=== PATIENT | male | born 1970 | race Caucasian/White ===

== ENCOUNTER 2025-04-21 08:36 | Observation (INO) | payer OTHER, SELFPAY ==
[2025-04-21] VITALS (8 sets, daily range): BP systolic 133–166; BP diastolic 77–89; PULSE 67–100; RESP 16–20; TEMP 36.3–36.7; O2SAT 95–98
--- NOTE | 2025-04-21 08:57 | DI.CT_ITS ---
Exam(s) CT ABDOMEN PELVIS W EXAM: CT ABDOMEN PELVIS W CLINICAL HISTORY: bloating, difficulty passing stool/gas, lower pain TECHNIQUE: Imaging Protocol: Axial computed tomography images with coronal and sagittal reformatted images were created and reviewed. CONTRAST MATERIAL: Intravenous: Omnipaque 350 Contrast volume:75 mL Oral: No COMPARISON: No exams were available for comparison FINDINGS: ABDOMEN: Lung Bases: There is atelectasis seen in the right lung base. Liver: Normal density. There is a cyst in the right lobe of the liver. No suspicious hepatic masses are present. Portal, Superior Mesenteric, and Splenic Veins: Unremarkable. Gallbladder and Biliary Tract: No radiodense calculus or dilation. Pancreas: Normal density, no abnormal calcifications or inflammatory process. Spleen: Normal. Adrenals: No masses seen. Kidneys: Normal size, contour and axis. No radiodense stones or obstructive uropathy. No masses seen. Abdominal Aorta: Abdominal portion non-dilated. Atherosclerotic calcification is present. Bowel: There is diverticulosis of the colon. There is bowel wall thickening seen in the mid sigmoid colon with pericolonic inflammation. There is extra luminal air seen around the inflamed colon consistent with perforation. There is no evidence of bowel obstruction. Appendix is unremarkable. Peritoneal Cavity: No ascites, collection or mesenteric inflammatory response. No evidence of an abdominal or pelvic abscess. Lymph Nodes: Within normal limits. Bones: Within normal limits for the patient's age. Soft Tissues: Unremarkable. PELVIS: Bladder: There is diffuse thickening of the wall of the urinary bladder. The bladder is underdistended. However, this may be secondary to the adjacent sigmoid colon inflammation. Cystitis should be considered. Reproductive Organs: Unremarkable as visualized. Lymph Nodes: Within normal limits. Bones: Within normal limits for the patient's age. IMPRESSION: 1. Sigmoid diverticulitis with adjacent free air consistent with perforation. There is no abscess. 2. Diffuse thickening of the wall of the urinary bladder. While this may be due to underdistention this may reflect inflammation/infection secondary to the adjacent inflamed sigmoid colon. 3. Findings were discussed with Noemi Conrad at 10:45 a.m. on 04/21/2025. RADIATION DOSE DELIVERED: 650.57mGy.cm Total DLP DATA REPOSITORY: All CT scans at this facility are submitted to the National Radiology Data Registry (NRDR) Dose Index Registry (DIR) with the [employer] ([employer]). RADIATION OPTIMIZATION: All CT scans at this facility use at least one of these dose optimization techniques: automated exposure control; mA and/or kV adjustment per patient size (includes targeted exams where dose is matched to clinical indication); or iterative reconstruction.
--- NOTE | 2025-04-21 08:57 | W.ED.GENAD ---
Discharge Plan Disposition Patient Disposition: Admit to [facility] Condition: Good Discharge Details Clinical Impression: Diverticulitis Admit Date/Time: 04/21/25 10:51 Admit Provider: Mohamud Anderson Attending Provider: Mohamud Anderson Primary Care Provider: None,None ED Provider: Noemi Conrad General Date/Time Provider Initiated Documentation: 04/21/25 08:37. Limitations to Documentation: no limitations. Information obtained by: patient and RN notes reviewed. History of Present Illness 54 year old M presents to the emergency department with the chief complaint of abdominal bloating, lower abdominal discomfort, described as moderate, Quality is described as aching and other (bloating), and is localized to the abdomen. Patient reports no radiation. Patient started experiencing this day(s) (3) and it has been constant. No relieving factors improve symptom(s), Eating worsens symptoms . Patient notes no other symptoms.. Patient did receive the following treatments prior to arrival, none Related Data Home Medications ?Medication ?Instructions ?Recorded ?Confirmed lisinopril 5 mg tablet 5 mg PO DAILY 04/21/25 04/21/25 Allergies Allergy/AdvReac Type Severity Reaction Status Date / Time No Known Allergies Allergy Unverified 04/21/25 08:43 General Stated Complaint: Abd Prob JACKIE: 3 Review of Systems Constitutional Constitutional: Reports as per HPI, Denies chills, Denies fever(s) and Denies headache(s) ENT Ears, Nose, Mouth, and Throat: Denies headache(s) Cardiovascular Cardiovascular: Reports as per HPI, Denies chest pain and Denies dyspnea Respiratory Respiratory: Reports as per HPI, Denies cough and Denies dyspnea Gastrointestinal Gastrointestinal: Reports as per HPI Genitourinary Genitourinary: Denies system reviewed and no additional complaints, except as documented (patient denies any change in urinary habits) Musculoskeletal Musculoskeletal: Reports as per HPI and Denies back pain Integumentary/Breasts Skin/Breast: Reports as per HPI and Denies rash Neurologic Neurologic: Reports as per HPI and Denies headache(s) Exam Const General: cooperative, healthy appearing, comfortable, no acute distress and well developed Nutritional Appearance: average body habitus and well nourished Orientation: alert and awake HENMT Head: normal to inspection Mouth: moist mucous membranes Resp Effort & Inspection: normal respiratory effort, able to speak in complete sentences and no respiratory distress Auscultation: clear to auscultation bilaterally, no rales, no rhonchi and no wheezes Cardio Rate: regular rate Rhythm: regular rhythm Heart Sounds: S1 normal and S2 normal GI Inspection: normal to inspection Palpation: soft, no hepatosplenomegaly, not firm, no guarding, no masses, no pulsatile masses, not rigid, tender in the LLQ, in the RLQ and at McBurney's point; with no rebound tenderness and No ascites Percussion: normal to percussion Auscultation: normal bowel sounds Back/Spine/Pelvis Back: no CVA tenderness Skin General skin exam: no rashes or lesions noted Trauma: no lacerations or abrasions Neuro General: patient alert and patient awake Cognition: normal cognition Speech: speech normal Gait: normal gait Course Vital Signs Vital signs: Vital Signs Temperature 36.3 C L 04/21/25 08:39 Pulse 100 H 04/21/25 08:39 Respiratory Rate 18 04/21/25 08:39 Blood Pressure 166/89 H 04/21/25 08:39 Pulse Oximetry 98 04/21/25 08:39 Temperature 36.3 C L 04/21/25 08:39 Temperature Source Tympanic 04/21/25 08:39 Pulse 100 H 04/21/25 08:39 Respiratory Rate 18 04/21/25 08:39 Blood Pressure 166/89 H 04/21/25 08:39 Blood Pressure Position Sitting 04/21/25 08:39 Pulse Oximetry 98 04/21/25 08:39 Oxygen Delivery Method Room Air 04/21/25 08:39 Oxygen Flow Rate 0 04/21/25 08:39 Pain Level 7 04/21/25 08:39 Medical Decision Making Patient is a pleasant 54-year-old gentleman 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 He reports that the symptoms began about 3 days ago. He has had episodes like this historically but states that the typically are able to pass. He has tried Gas-X without any relief. States that when he tries to drink a normal amount of fluids or eat any food he will vomit these up and is not able to keep anything down for 3 days aside from very small amounts of water. No change in urinary habits. States that he did have 1 very small liquid stool but otherwise no bowel movements for 3 days and does report a change in flatus as well. No previous abdominal surgeries. He did have a colonoscopy 3 years ago which she reports was normal. Denies any fevers or chills. No pain into his back. Denies any chest pain or shortness of breath. On exam, patient appears nontoxic. He is resting comfortably no acute distress. Lungs are clear, normal cardiac exam. No peritoneal findings on exam. Patient is slightly bloated and does have some mild discomfort bilaterally in the lower abdomen but no focal area of tenderness. Does have some mild discomfort over McBurney's point. Negative Vital's. No guarding or rebound tenderness. Will obtain baseline labs and CT. Concern for potential obstruction but, based on patient's history, unclear what would have caused this. He reports that he drinks 3 alcoholic beverages per day, no ascites was appreciated. He is not using any narcotics to slow down GI transit. Also considered other inflammatory issues such diverticulitis and appendicitis given the location of his discomfort. No personal familial history of Crohn's or other GI chronic disease. CT reviewed by radiologist, concerning for diverticulitis with free air noted. Will begin IV antibiotics and consult with general surgery. Patient started on Zosyn. Consulted with Dr. Anderson, general surgeon, who agrees to admit the patient for continued monitoring of his diverticulitis with perforation. Patient will remain n.p.o.. PFSH All Active Problems (Updated 04/21/25 @ 15:11 by ERUM Odom) Diverticulitis (Chronic) Social History Smoking/Tobacco Use Status: Never Smoking risk assessment performed?: Yes Alcohol Intake: never Drug use: Never Substance use type: does not use Housing: house Do you feel safe at home: Yes Do you feel safe in your relationship?: Yes
[2025-04-21 09:14] LABS: Abs Immature Grans 0.05 10^3/uL (0.0-0.06); Absolute Eosinophil Count 0.01 10^3/uL (0.0-0.7); Absolute Lymphocyte Count 0.66 10^3/uL (1.2-3.4); Absolute Monocyte Count 1.27 10^3/uL (0.1-0.8); Basophils % 0.3 %; Eosinophils % 0.1 %; HCT 43.7 % (40.0-50.0); HGB 15.4 g/dL (13.5-17.5); Immature Grans % 0.3 %; Lymphocytes % 4.5 %; MCH 31.8 pg (27.0-33.0); MCHC 35.2 % (32.0-36.0); MCV 90 fL (80-95); MPV 9.1 fL (8.0-11.0); Monocytes % 8.7 %; Neutrophils % 86.1 %; Platelet Count 249 10^3/uL (130-400); RBC 4.85 10^6/uL (4.36-5.78); RDW 11.9 % (11.8-14.1); RDW-SD 39.2 fL; WBC 14.63 10^3/uL (4.4-10.8)
[2025-04-21 09:15] LABS: Absolute Basophil Count 0.04 10^3/uL (0.0-0.2)
[2025-04-21] MEDS: Normal Saline 1,000 ML 1000 ML IV (09:29)
[2025-04-21 09:33] LABS: ALT 27 U/L (16-63); AST 16 U/L (15-37); Albumin 3.5 g/dL (3.4-5.0); Alkaline Phosphatase 91 U/L (46-116); Anion Gap 16.2 mmol/L (3-11); BUN 13 mg/dL (7-18); Bilirubin, Total 1.3 mg/dL (0.2-1.0); CO2 21.8 mmol/L (21.0-32.0); Calcium 9.5 mg/dL (8.5-10.1); Chloride 97 mmol/L (98-107); Estimated GFR 88.88 (mL/min/1.73m2); Glucose 104 mg/dL (74-106); Lipase 32 U/L (<78); Potassium 3.8 mmol/L (3.5-5.1); Sodium 135 mmol/L (136-145); Total Protein 8.1 g/dL (6.4-8.2)
[2025-04-21] MEDS: Normal Saline - Diluent 50 ML VIAL IJ (10:10)
[2025-04-21] MEDS: Omnipaque 350 MG/ML 500 ML BTL-Imaging package IJ (10:11)
[2025-04-21 10:19] LABS: Bilirubin Negative (Negative); Blood Small (Negative); Clarity Clear (Clear); Glucose Negative (Negative); Ketones 40 mg/dL (Negative); Leukocyte Esterase Negative (Negative); Nitrite Negative (Negative); Specific Gravity <= 1.005 (1.005-1.025); Urobilinogen 0.2 mg/dL (Up to 0.2); pH 5.5 (5-8)
[2025-04-21 10:26] LABS: Bacteria Negative HPF (Negative); C & S Indicated? No; Casts Negative LPF (Negative); Crystals Negative HPF (Negative); Epithelial Cells Rare HPF (Negative); Mucus Trace (Negative); RBC 0-2 HPF (0-2); WBC Negative HPF (0-5)
--- NOTE | 2025-04-21 10:56 | W.PM.HP.N ---
Date of service: 04/21/25 Time of Service: 10:56 Assessment and Plan Assessment and plan (1) Diverticulitis: Status: Chronic Assessment and plan: Michael has perforated diverticulitis, that appears to be well-contained within the sigmoid mesentery. There is a small amount of air within the mesentery, and some inflammation, but no abscess. He is already been started on broad-spectrum antibiotics, keep n.p.o. overnight. Will continue with some basic intravenous fluids. I will repeat the CBC and reexamine him tomorrow. Hopefully, the antibiotics will be enough to allow this to heal. We talked about other possibilities, which include evolution to a discrete abscess that would require percutaneous drainage, and far less likely evolution of peritonitis that would necessitate sigmoid colectomy and colostomy. I think recovery is a very good understanding of all of this. History of Present Illness History of Present Illness Chief Complaint: abdominal pain Narrative: Michael is 54 years old, he comes to the emergency department today with abdominal pain. He describes an acute onset of sharp stabbing pain on the left flank, slightly lower down. He felt like his muscles were twinging. This was associated with a loss of appetite, then some nausea. He denies any diarrhea, hematochezia, or any other recent GI symptoms. To the emergency department, was found to have a leukocytosis around 14,000. He underwent a CT scan that demonstrated acute diverticulitis with perforation into the sigmoid mesentery. Review of Systems Constitutional Constitutional: Reports poor appetite Eyes Eyes: Reports system reviewed and no additional complaints, except as documented ENT Ears, Nose, Mouth, and Throat: Reports system reviewed and no additional complaints, except as documented Cardiovascular Cardiovascular: Denies chest pain and Denies dyspnea Respiratory Respiratory: Denies chest congestion, Denies cough and Denies dyspnea Gastrointestinal Gastrointestinal: Reports abdominal pain, Denies constipation and Reports nausea Genitourinary Genitourinary: Reports system reviewed and no additional complaints, except as documented Hematologic/Lymphatic Hematologic/Lymphatic: Denies easy bleeding and Denies easy bruising PFSH All Active Problems (Updated 04/21/25 @ 15:11 by ERUM Odom) Diverticulitis (Chronic) Social History Smoking/Tobacco Use Status: Never Smoking risk assessment performed?: Yes Alcohol Intake: never Drug use: Never Substance use type: does not use Housing: house Do you feel safe at home: Yes Do you feel safe in your relationship?: Yes Meds Allergies and Home Medications Allergies Allergy/AdvReac Type Severity Reaction Status Date / Time No Known Allergies Allergy Unverified 04/21/25 08:43 Home Medications ?Medication ?Instructions ?Recorded ?Confirmed ?Type lisinopril 5 mg tablet 5 mg PO DAILY 04/21/25 04/21/25 History Exam Const General: cooperative, healthy appearing and comfortable Orientation: alert, awake and oriented x3 HENMT Head: normal to inspection Eyes General: appearance normal, both eyes and all related structures Neck Neck: normal visual inspection, full ROM and no lymphadenopathy Resp Auscultation: clear to auscultation bilaterally GI Inspection: normal to inspection and non-distended Palpation: soft, no hernias, no masses and tender (Suprapubic area to the left side) Auscultation: normal bowel sounds Results Imaging Abdomen CT scan report/results: report reviewed and image reviewed CT scan - pelvis: report reviewed and image reviewed Labs 04/21/25 09:03 04/21/25 09:03 Labs: Laboratory Results - last 24 hr 04/21/25 04/21/25 09:03 10:06 WBC 14.63 H RBC 4.85 Hgb 15.4 Hct 43.7 MCV 90 MCH 31.8 MCHC 35.2 RDW 11.9 Plt Count 249 MPV 9.1 Immature Gran % 0.3 Neutrophils % 86.1 Lymphocytes % 4.5 Monocytes % 8.7 Eosinophils % 0.1 Basophils % 0.3 Nucleated RBC % 0.0 Absolute Neutrophils 12.60 H Absolute Lymphocytes 0.66 L Absolute Monocytes 1.27 H Absolute Eosinophils 0.01 Absolute Basophils 0.04 Sodium 135 L Potassium 3.8 Chloride 97 L Carbon Dioxide 21.8 Anion Gap 16.2 H BUN 13 Creatinine 1.0 Est GFR (CKD-EPI 2020) 88.88 Glucose 104 Calcium 9.5 Magnesium 2.0 Total Bilirubin 1.3 H AST 16 ALT 27 Alkaline Phosphatase 91 Total Protein 8.1 Albumin 3.5 Lipase 32 Urine Color Yellow Urine Clarity Clear Urine pH 5.5 Ur Specific [place] <= 1.005 Urine Protein Negative Urine Ketones 40 H Urine Blood Small H Urine Nitrite Negative Urine Bilirubin Negative Urine Urobilinogen 0.2 Ur Leukocyte Esterase Negative Urine RBC 0-2 Urine WBC Negative Ur Epithelial Cells Rare Urine Crystals Negative Urine Bacteria Negative Urine Casts Negative Urine Mucus Trace Ur Culture Indicated? No Urine Glucose Negative Last Vital Signs Temp 97.3 F L 04/21/25 09:06 Pulse 80 04/21/25 10:26 Resp 16 04/21/25 10:26 BP 148/77 H 04/21/25 10:26 Pulse Ox 97 04/21/25 10:26 Time Spent Time spent with Patient: >75 minutes Time was spent: preparing to see the patient(eg.review tests), obtaining and/or reviewing separately otained hiistory, ordering medications,tests, procedures, referring, communicating with other health pediatric acute care unit nurse, indepentently interpreting results and counseling the patient
[2025-04-21] MEDS: PIPERACILLIN/TAZO 3.375 GM in Normal Saline 50 ML IVPB ×3 (10:57→20:23)
[2025-04-21] MEDS: HYDROmorphone 2 MG/ML SYR 1 MG IVP (12:07)
[2025-04-21] MEDS: Normal Saline Flush 10 ML SYR IVP ×2 (12:08→20:22)
[2025-04-21] MEDS: Lactated Ringers 1,000 ML 75 ML IV (12:09)
[2025-04-21] MEDS: Enoxaparin 40 MG/0.4 ML SYR SC (12:11)
[2025-04-21] MEDS: ACETAMINOPHEN 1,000 MG/100 ML BAG 400 MG IVPB ×2 (12:11→18:31)
--- NOTE | 2025-04-21 14:10 | W.PC.ACHO ---
Registration Status: ADM DOTTIE Primary Language: Preferred Language: ED Information & Data Chief Complaint Abd Prob 04/21/25 09:06 Chief Complaint Abd Prob 04/21/25 09:01 Triage Note Pt states lower abd pain/ 04/21/25 08:39 pressure for 3 days, n/v. small bm this morning. Most Recent Vital Signs Temperature 36.5 C 04/21/25 11:41 Temperature Source Temporal Artery Scan 04/21/25 11:40 Pulse 81 04/21/25 11:42 Pulse Rhythm Regular 04/21/25 11:41 Respiratory Rate 16 04/21/25 11:42 Respiratory Effort Normal, Non-Labored 04/21/25 11:41 Respiratory Depth Normal 04/21/25 11:41 Respiratory Pattern Normal 04/21/25 11:41 Blood Pressure 155/86 H 04/21/25 11:42 Blood Pressure Mean 109 04/21/25 11:42 Blood Pressure Position Sitting 04/21/25 09:06 Pulse Oximetry 98 04/21/25 11:42 Oxygen Delivery Method Room Air 04/21/25 11:41 Oxygen Flow Rate 0 04/21/25 11:41 Pain Level 7 04/21/25 09:06 Allergies No Known Allergies Allergy (Unverified 04/21/25 08:43) Precautions Isolation Standard precaution 04/21/25 09:06 Active Medications Generic Name Dose Route Start Last Admin Trade Name Freq PRN Reason Stop Dose Admin Enoxaparin Sodium 40 mg 04/21/25 12:00 04/21/25 12:11 Enoxaparin 40 Mg/0.4 Ml Syr SC 40 mg Q24H CRISTA Administration Hydromorphone HCl 1 mg 04/21/25 10:51 04/21/25 12:07 Hydromorphone 2 Mg/Ml Syr IVP 1 mg Q4H PRN PRN Administration Ringer's Solution 1,000 mls @ 75 mls/hr 04/21/25 11:00 04/21/25 12:09 IV 75 mls/hr INFUSION CRISTA Administration Acetaminophen 1,000 mg in 100 mls @ 400 mls/hr 04/21/25 12:00 04/21/25 12:11 Ofirmev IVPB 400 mls/hr Q6H CRISTA Administration Sodium Chloride 0 ml 04/21/25 10:51 04/21/25 12:08 Normal Saline Flush 10 Ml Syr IVP 10 ml PRN PRN Administration IV IV Catheter Type [Right Saline Lock Antecubital] IV Catheter Gauge [Right 18 Antecubital] Diet Orders Category Date Time Status Nothing Per Oral [DIET] Nutrition 04/21/25 10:52 Active Diagnostics 04/21/25 04/21/25 Range/Units 10:06 09:03 WBC 14.63 H (4.4-10.8) 10^3/uL RBC 4.85 (4.36-5.78) 10^6/uL Hgb 15.4 (13.5-17.5) g/dL Hct 43.7 (40.0-50.0) % MCV 90 (80-95) fL MCH 31.8 (27.0-33.0) pg MCHC 35.2 (32.0-36.0) % RDW 11.9 (11.8-14.1) % Plt Count 249 (130-400) 10^3/uL MPV 9.1 (8.0-11.0) fL Immature Gran % 0.3 % Neutrophils % 86.1 % Lymphocytes % 4.5 % Monocytes % 8.7 % Eosinophils % 0.1 % Basophils % 0.3 % Nucleated RBC % 0.0 (0.0-0.3) % Absolute Neutrophils 12.60 H (1.2-6.7) 10^3/uL Absolute Lymphocytes 0.66 L (1.2-3.4) 10^3/uL Absolute Monocytes 1.27 H (0.1-0.8) 10^3/uL Absolute Eosinophils 0.01 (0.0-0.7) 10^3/uL Absolute Basophils 0.04 (0.0-0.2) 10^3/uL Sodium 135 L (136-145) mmol/L Potassium 3.8 (3.5-5.1) mmol/L Chloride 97 L (98-107) mmol/L Carbon Dioxide 21.8 (21.0-32.0) mmol/L Anion Gap 16.2 H (3-11) mmol/L BUN 13 (7-18) mg/dL Creatinine 1.0 (0.70-1.30) mg/dL Est GFR (CKD-EPI 2020) 88.88 (mL/min/1.73m2) Glucose 104 (74-106) mg/dL Calcium 9.5 (8.5-10.1) mg/dL Magnesium 2.0 (1.8-2.4) mg/dL Total Bilirubin 1.3 H (0.2-1.0) mg/dL AST 16 (15-37) U/L ALT 27 (16-63) U/L Alkaline Phosphatase 91 (46-116) U/L Total Protein 8.1 (6.4-8.2) g/dL Albumin 3.5 (3.4-5.0) g/dL Lipase 32 (<78) U/L Urine Color Yellow (Yellow) Urine Clarity Clear (Clear) Urine pH 5.5 (5-8) Ur Specific [place] <= 1.005 (1.005-1.025) Urine Protein Negative (Neg-Trace) mg/dL Urine Ketones 40 H (Negative) mg/dL Urine Blood Small H (Negative) Urine Nitrite Negative (Negative) Urine Bilirubin Negative (Negative) Urine Urobilinogen 0.2 (Up to 0.2) mg/dL Ur Leukocyte Esterase Negative (Negative) Urine RBC 0-2 (0-2) HPF Urine WBC Negative (0-5) HPF Ur Epithelial Cells Rare (Negative) HPF Urine Crystals Negative (Negative) HPF Urine Bacteria Negative (Negative) HPF Urine Casts Negative (Negative) LPF Urine Mucus Trace (Negative) Ur Culture Indicated? No Urine Glucose Negative (Negative) mg/dL Intake and Output - 24 Hour Total 04/21/25 08:36 thru 04/21/25 11:41 Intake Total 1050 Balance 1050 Weight 86.183 kg Intake: IV 1050 Other: Urine Appearance Clear Falls Risk Assessment History of Falls No History 04/21/25 11:41 Contributing Factors Medications 04/21/25 11:41 Ambulatory Aids Independent 04/21/25 11:41 Tubes/Lines W/no contributing factors 04/21/25 11:41 Gait Evaluation No gait disturbance 04/21/25 11:41 Cognition No cognitive impairment 04/21/25 11:41 Fall Total Score 13 04/21/25 11:41 Level of Risk Standard/Low Risk 04/21/25 11:41 v v v v v v v v v Sending and/or Receiving Nurses: Please use comment section below to note any information pertinent to the patient hand-off not included above. Information / Comments: Pt walky talky per report, continent. Report received from: ALPA Tracy RN. 11:26
[2025-04-22] MEDS: ACETAMINOPHEN 1,000 MG/100 ML BAG 400 MG IVPB ×4 (00:27→23:51)
[2025-04-22] MEDS: Lactated Ringers 1,000 ML 75 ML IV ×2 (03:51→19:39)
[2025-04-22] MEDS: PIPERACILLIN/TAZO 3.375 GM in Normal Saline 50 ML IVPB ×2 (03:53→10:35)
[2025-04-22 07:29] LABS: Abs Immature Grans 0.07 10^3/uL (0.0-0.06); Absolute Basophil Count 0.02 10^3/uL (0.0-0.2); Absolute Eosinophil Count 0.03 10^3/uL (0.0-0.7); Absolute Monocyte Count 0.56 10^3/uL (0.1-0.8); Absolute Neutrophil Count 9.65 10^3/uL (1.2-6.7); Basophils % 0.2 %; Eosinophils % 0.3 %; HCT 40.1 % (40.0-50.0); HGB 13.7 g/dL (13.5-17.5); Immature Grans % 0.6 %; Lymphocytes % 4.6 %; MCH 31.4 pg (27.0-33.0); MCHC 34.2 % (32.0-36.0); MCV 92 fL (80-95); MPV 9.4 fL (8.0-11.0); Monocytes % 5.2 %; Neutrophils % 89.1 %; Platelet Count 256 10^3/uL (130-400); RBC 4.37 10^6/uL (4.36-5.78); RDW 11.8 % (11.8-14.1); RDW-SD 39.7 fL; WBC 10.83 10^3/uL (4.4-10.8)
--- NOTE | 2025-04-22 11:59 | W.PM.PROGNOT ---
Date of Service Date of service: 04/22/25 Time of Service: 11:59 Assessment and Plan Assessment and plan (1) Diverticulitis: Status: Chronic Assessment and plan: His hemodynamics, exam, and the decrease in his leukocytosis are all very reassuring. I think it is reasonable to advance his diet to full liquids today, and I will switch him over to Augmentin rather than intravenous antibiotics. Will repeat a CBC tomorrow, and see how he does with the diet. Hopefully, he can be discharged in the next day or 2 Subjective Subjective Interval history since last seen: Regularly looks very good today. He said he was able to sleep overnight. His pain has been well-controlled. He has an appetite. He did have 1 episode of diarrhea overnight. Exam GI Other: Abdomen is soft and just a tiny bit distended. He is not very tender. Objective Last Vital Signs Temp 98.1 F 04/21/25 19:14 Pulse 67 04/21/25 19:14 Resp 20 04/21/25 19:14 BP 133/83 04/21/25 19:14 Pulse Ox 95 04/21/25 19:14 Laboratory Results - last 24 hr 04/22/25 06:00 WBC 10.83 H RBC 4.37 Hgb 13.7 Hct 40.1 MCV 92 MCH 31.4 MCHC 34.2 RDW 11.8 Plt Count 256 MPV 9.4 Immature Gran % 0.6 Neutrophils % 89.1 Lymphocytes % 4.6 Monocytes % 5.2 Eosinophils % 0.3 Basophils % 0.2 Nucleated RBC % 0.0 Absolute Neutrophils 9.65 H Absolute Lymphocytes 0.50 L Absolute Monocytes 0.56 Absolute Eosinophils 0.03 Absolute Basophils 0.02 PAWSS Have you Been Recently Intoxicated or Drunk Within the Last 30 days?: No Have you Ever Experienced Previous Episodes of Alcohol Withdrawal?: No Have you ever Experienced Withdrawal Seizures?: No Have you ever Experienced Delirium Tremens(DT)s?: No Have you ever undergone Alcohol Rehabilitation Treatment (i.e, inpt ot outpatient treatment programs)?: No Have you ever Experienced Blackouts?: No Have you ever Combined Alcohol with other Downers within the last 90 days?: No Have you ever Combined Alcohol with any other Substance of Abuse during the last 90 days?: No Positive Blood Alcohol level on Presentation? [PCS.BAL]: No Evidence of Increased Autonomic Activity (i.e. HR>120, tremor, sweating, agitation, nausea)?: No Result: 0 Time Spent with Patient Time Spent with Patient: 25-34 minutes Time was spent: preparing to see the patient(eg.review tests), ordering medications,tests, procedures, indepentently interpreting results and counseling the patient
[2025-04-22] MEDS: Enoxaparin 40 MG/0.4 ML SYR SC (12:29)
--- NOTE | 2025-04-22 13:34 | INITIAL_ITS ---
Date of service: 04/22/25 Time of Service: 13:34 Care Management Initial Assmt Initial Assessment Reason for Hospitalization: perforated diverticulitis Functional Status/Living Situation Patient Presentation: Andrew was lying in bed when CM met with him. He had his own blanket on, for comfort. He stated that he lives in [place] with his and son, and that he is retired and a . He reported that per MD, he will likely be able to return home tomorrow, which he is looking forward to. He reported that he seeks most of his care, including primary care, at the [facility]. [facility] currently. He stated that he is independent and does not require any services upon discharge. CM will continue to follow. Town of Residence: [place] Resides with: Spouse (, Angleica) Significant Other/Family: Local Natural Supports: , Angelica, and son. Employment Status: Retired Instrumental Activities of Daily Living (ADLs): Independent Medications Medication Management: No Issues/Barriers identified Advance Directives Advance Directives: Do you have an Advance Directive: N , 08:53 AD On File at [facility]: N 04/21/25, 08:36 Date Asked 04/21/25 04/21/25, 08:53 AD Date Reviewed COLST On File at [facility] COLST Date Scanned Code Status Resuscitation Status Full Code Insurance Coverage/Financial Issues Insurance: [facility] Care Team Visit Care Team Role Provider Type None None Primary Care Provider NON-[facility] STAFF PHYSICIAN ERUM Odom Emergency Provider PHYSICIANS POLYSOMNOGRAPHIC TECHNOLOGIST Mohamud Anderson MD Admit Provider [facility] STAFF PHYSICIAN Attending Provider Discharge Potential Discharge Needs: Surgical F/U Appt Anticipated Barriers to Discharge: None Identified Patient/Family Education Needs: Review discharge instructions, discuss Ask Me Three Transportation: Private vehicle Plan: Anticipate Michael will return home once medically cleared. His will drive him home via private vehicle when ready. He will follow up with surgical services, and his discharge plan of care. CM will continue to follow. Social Determinants of Health Screening Will the Patient Participate in the Screening?: Unable to obtain PFSH All Active Problems (Updated 04/21/25 @ 15:11 by ERUM Odom) Diverticulitis (Chronic) Social History Smoking/Tobacco Use Status: Never Smoking risk assessment performed?: Yes Alcohol Intake: never Drug use: Never Substance use type: does not use Housing: house Do you feel safe at home: Yes Do you feel safe in your relationship?: Yes
[2025-04-22 19:32] VITALS: BP 125/80; PULSE 72; RESP 20; TEMP 36.2; O2SAT 96
[2025-04-22] MEDS: Amoxicillin 875/Clav. 125 TAB PO (19:36)
[2025-04-22] MEDS: Normal Saline Flush 10 ML SYR IVP (19:38)
[2025-04-23] MEDS: ACETAMINOPHEN 1,000 MG/100 ML BAG 400 MG IVPB (05:43)
[2025-04-23 06:32] LABS: HCT 39.5 % (40.0-50.0); HGB 13.6 g/dL (13.5-17.5); MCH 31.3 pg (27.0-33.0); MCHC 34.4 % (32.0-36.0); MCV 91 fL (80-95); MPV 9.3 fL (8.0-11.0); Platelet Count 284 10^3/uL (130-400); RBC 4.34 10^6/uL (4.36-5.78); RDW 11.7 % (11.8-14.1); RDW-SD 39.1 fL; WBC 6.19 10^3/uL (4.4-10.8)
[2025-04-23 07:35] VITALS: BP 134/80; PULSE 60; RESP 16; TEMP 36; O2SAT 98
--- NOTE | 2025-04-23 07:52 | DSE_ITS ---
Date of service: 04/23/25 Time of Service: 07:52 DS: Diagnosis Discharge Diagnosis (1) Diverticulitis: Status: Chronic Asessment and Plan: discharge home with outpatient follow up Discharge Plan Disposition Patient Disposition: Home Condition: Good Discharge Details Reason For Visit: Perforated diverticulitis Admit Date/Time: 04/21/25 10:51 Admit Provider: Mohamud Anderson Attending Provider: Mohamud Anderson Primary Care Provider: None,None Hospital Course Hospital Course: Michael was admitted with perforted diveriticulitis contained in the sigmoid mesentary. He was started on zosyn and his WBC and symptoms improved. He was transitioned to oral antibiotics as diet was advenaced and his WBC normalized. He tolerated regular food and was discharged home with planned follow up Home Meds and New Rx's Prescriptions: New amoxicillin-pot clavulanate 875-125 mg Tablet 1 tab PO BID Qty: 8 0RF polyethylene glycol 3350 [Miralax] 17 gram/dose powder 17 g PO DAILY Qty: 119 0RF Rx Instructions: take one capful mixed with at least 8 ounces of liquids daily for at least 3 days. If you tolerate this well, then you can continue. If it is causing diarrhea, then stop. Continued lisinopril 5 mg tablet 5 mg PO DAILY Discharge Instructions Instructions: Diverticulitis Additional Instructions: Michael, it was nice meeting you and I hope you have a smooth and uneventful transition home. Please check your temperature at home. Do it once in the morning and once in the evening and any time during the day if you feel feverish. Let me know if it exceeds 100 degrees. You should be up and moving ar ound once you get home. I would avoid big strenuous activity, but you also shouldn't be lying around on the couch all day. I don't get that impression from you, but it's still good to state. I prescribed an antibiotic commonly called Augmentin. It is what we started in the hospital. Take a pill in the morning and a pill in the evening, until they are gone. I also wrote for miralax like we discussed. My office will call this week to set up an appointment. As I mentioned, I would anticipate moving over to a more fiber rich diet or supplement at that time. And probably a colonoscopy in a few weeks. If you need anything at all call the office at [phone]. Activity:: Activity as Tolerated Equipment/Supplies:: No Equipment Needed Diet:: As Tolerated DS: Summary Time Spent with Patient providing and/or coordinating discharge services: Greater than 30 minutes Status at Discharge Functional status at discharge: independent ambulation Overall status at discharge: patient is progressing back to baseline Mental Status: mental status grossly normal Speech and Movement: speech and movement normal Mood: congruent mood Affect: normal affect Exam Psych Mental Status: mental status grossly normal Speech and Movement: speech and movement normal Mood: congruent mood Affect: normal affect DS: Data Vitals/I&O Vitals and I&O: Vital Signs Temperature 96.8 F L 04/23/25 07:35 Temperature Source Temporal Artery Scan 04/23/25 07:35 Pulse 60 04/23/25 07:35 Pulse Rhythm Regular 04/21/25 11:41 Respiratory Rate 16 04/23/25 07:35 Respiratory Effort Normal, Non-Labored 04/21/25 11:41 Respiratory Depth Normal 04/21/25 11:41 Respiratory Pattern Normal 04/21/25 11:41 Blood Pressure 134/80 04/23/25 07:35 Blood Pressure Mean 98 04/23/25 07:35 Blood Pressure Position Sitting 04/21/25 09:06 Pulse Oximetry 98 04/23/25 07:35 Oxygen Delivery Method Room Air 04/23/25 07:35 Oxygen Flow Rate 0 04/23/25 07:35 Pain Level 2 04/23/25 07:35 Intake & Output 04/22/25 04/22/25 04/23/25 11:59 23:59 11:59 Intake Total 2400 / 4900 2500 / 4900 1100 / 1100 Balance 2400 / 4900 2500 / 4900 1100 / 1100 Intake: IV 2400 / 4500 2100 / 4500 1100 / 1100 Oral 400 / 400 Other: Urine Color Pale Yellow Yellow Urine Appearance Clear Clear Urine Odor Normal Normal Stool Characteristics Liquid Data Completed and Pending Labs on day of discharge: Labs from last 24 hours 04/23/25 05:50 WBC 6.19 RBC 4.34 L Hgb 13.6 Hct 39.5 L MCV 91 MCH 31.3 MCHC 34.4 RDW 11.7 L Plt Count 284 MPV 9.3 PFSH All Active Problems (Updated 04/21/25 @ 15:11 by ERUM Odom) Diverticulitis (Chronic) Social History Smoking/Tobacco Use Status: Never Smoking risk assessment performed?: Yes Alcohol Intake: never Drug use: Never Substance use type: does not use Housing: house Do you feel safe at home: Yes Do you feel safe in your relationship?: Yes Time Spent with Patient Time Spent with Patient: <45 minutes Time was spent: preparing to see the patient(eg.review tests), indepentently interpreting results, counseling the patient and care coordination
[2025-04-23] MEDS: Polyethylene Glycol 3350 17 GM PACKET PO (08:24)
[2025-04-23] MEDS: Amoxicillin 875/Clav. 125 TAB PO (08:24)
[2025-04-23] MEDS: Normal Saline Flush 10 ML SYR IVP (08:24)
--- NOTE | 2025-04-23 09:20 | W.PM.PROGNOT ---
Date of Service Date of service: 04/23/25 Time of Service: 09:20 Assessment and Plan Assessment and plan (1) Diverticulitis: Status: Chronic Assessment and plan: Andrew is making a nice recovery from complicated diverticulitis. Will discharge him home today, with a short course of outpatient antibiotics. Will follow-up in the office and make a definitive plan for long-term management. Subjective Subjective Interval history since last seen: Mj looks great today. His pain is well-controlled, has been tolerating liquids without any issues. He remains afebrile, and his white blood cell count is normalized. Exam GI Other: Abdomen remains soft, and not very tender. Objective Last Vital Signs Temp 96.8 F L 04/23/25 07:35 Pulse 60 04/23/25 07:35 Resp 16 04/23/25 07:35 BP 134/80 04/23/25 07:35 Pulse Ox 98 04/23/25 07:35 Laboratory Results - last 24 hr 04/23/25 05:50 WBC 6.19 RBC 4.34 L Hgb 13.6 Hct 39.5 L MCV 91 MCH 31.3 MCHC 34.4 RDW 11.7 L Plt Count 284 MPV 9.3 PAWSS Have you Been Recently Intoxicated or Drunk Within the Last 30 days?: No Have you Ever Experienced Previous Episodes of Alcohol Withdrawal?: No Have you ever Experienced Withdrawal Seizures?: No Have you ever Experienced Delirium Tremens(DT)s?: No Have you ever undergone Alcohol Rehabilitation Treatment (i.e, inpt ot outpatient treatment programs)?: No Have you ever Experienced Blackouts?: No Have you ever Combined Alcohol with other Downers within the last 90 days?: No Have you ever Combined Alcohol with any other Substance of Abuse during the last 90 days?: No Positive Blood Alcohol level on Presentation? [PCS.BAL]: No Evidence of Increased Autonomic Activity (i.e. HR>120, tremor, sweating, agitation, nausea)?: No Result: 0 Time Spent with Patient Time Spent with Patient: 25-34 minutes Time was spent: preparing to see the patient(eg.review tests), indepentently interpreting results and counseling the patient
--- NOTE | 2025-04-23 13:41 | PDOC.CMDIS ---
Date of service: 04/23/25 Time of Service: 13:41 LACE Index Scoring Tool Questions: Length of Stay (in days): 2 Was the patient admitted via the E.D.?: Yes E.D. Visits: 0 Answers: Total Score: 5 Risk of Readmission: Low Risk Care Management Discharge Plan Reason for Hospitalization: Perforated diverticulitis Discharge Plan: Andrew returned home with no new services today. His drove him home via private vehicle. He will follow up with surgical services and his discharge plan of care. Patient/Family Education Needs: Review discharge instructions and limitations, discussion of self care needs including ask me three.
== END 2025-04-23 10:12 | disposition home or self-care (01) ==
LOC: ER 10:46 → MS 11:39
PROVIDERS: Admitting Provider Surgery; Emergency Provider Physician Assistant; Responsible Provider Surgery; Visit Provider Surgery
DX: K57.20 Diverticulitis of large intestine with perforation and abscess without bleeding (principal); D72.829 Elevated white blood cell count, unspecified
CPT/HCPCS: 36415; 80053; 83690; 85027; 96361; 96365; 96366; 96367; 96372; 96375; 96376; 99285; J1650; 74177; 81003; 81015; 83735; 85025; G0378; J0131; J1171; J2543

== ENCOUNTER 2025-06-16 13:51 | Emergency (ER) | payer OTHER, SELFPAY ==
[2025-06-16 13:53] VITALS: BP 161/109; PULSE 74; RESP 16; TEMP 36.4; O2SAT 97
--- NOTE | 2025-06-16 14:15 | DI.CT_ITS ---
Exam(s) CT ABDOMEN PELVIS W EXAM: CT ABDOMEN PELVIS W CLINICAL HISTORY: LLQ pain, eval for diverticulitis vs abscess. TECHNIQUE: Imaging Protocol: Axial computed tomography images with coronal and sagittal reformatted images were created and reviewed CONTRAST MATERIAL: Intravenous: Omnipaque 350 Contrast volume:100 ml Oral: no COMPARISON: CT CT ABDOMEN PELVIS W from 04/21/2025 FINDINGS: ABDOMEN and PELVIS: Lung Bases: No acute findings. Liver: Normal density. No suspicious mass. Gallbladder and biliary tract: No radiodense calculus. No wall thickening or pericholecystic fluid. No biliary dilation. Pancreas: Normal density. No abnormal calcifications or inflammatory process. No evidence of mass. Spleen: Normal. Kidneys: Normal size, contour and axis. No radiodense stones. No obstructive uropathy. No suspicious masses seen. Adrenal glands: No masses seen. Vasculature: Abdominal aorta non-dilated. Soft tissues: Unremarkable. Bladder: No gross wall thickening. No calculi.No focal mass. Bowel: There is diverticulosis noted of the lower descending and sigmoid colon. There is a focal area of inflammation at the mid sigmoid, consistent with diverticulitis. There is some stranding in the surrounding fat but no evidence of abscess or perforation. No obstruction. Appendix normal. Peritoneal cavity: No ascites. No focal collection. No free air. Bones: Unremarkable for age. Reproductive organs: Unremarkable. Lymph nodes: No pathologically enlarged lymph nodes. IMPRESSION:: Small focal area sigmoid diverticulitis without evidence of perforation or abscess. RADIATION DOSE DELIVERED: Total DLP DATA REPOSITORY: All CT scans at this facility are submitted to the National Radiology Data Registry (NRDR) Dose Index Registry (DIR) with the [employer] (ACR). RADIATION OPTIMIZATION: All CT scans at this facility use at least one of these dose optimization techniques: automated exposure control; mA and/or kV adjustment per patient size (includes targeted exams where dose is matched to clinical indication); or iterative reconstruction.
[2025-06-16 14:26] VITALS: BP 161/109; PULSE 74; RESP 16; TEMP 36.4; O2SAT 97
[2025-06-16] MEDS: Ketorolac 15 MG/ML VIAL IVP (14:36)
[2025-06-16] MEDS: ACETAMINOPHEN 1,000 MG/100 ML BAG 400 MG IVPB (14:36)
[2025-06-16] MEDS: Normal Saline 500 ML IV (14:37)
[2025-06-16 14:38] LABS: Abs Immature Grans 0.03 10^3/uL (0.0-0.06); HCT 43.6 % (40.0-50.0); HGB 15.2 g/dL (13.5-17.5); Immature Grans % 0.4 %; MCH 31.3 pg (27.0-33.0); MCHC 34.9 % (32.0-36.0); MCV 90 fL (80-95); MPV 8.8 fL (8.0-11.0); Platelet Count 312 10^3/uL (130-400); RBC 4.86 10^6/uL (4.36-5.78); RDW 12.7 % (11.8-14.1); RDW-SD 41.8 fL; WBC 7.36 10^3/uL (4.4-10.8)
[2025-06-16] MEDS: Normal Saline Flush 10 ML SYR IVP (14:40)
[2025-06-16] MEDS: Normal Saline - Diluent 50 ML VIAL IJ (14:40)
[2025-06-16] MEDS: Omnipaque 350 MG/ML 100 ML BTL IJ (14:41)
--- NOTE | 2025-06-16 14:51 | W.ED.GENAD ---
Discharge Plan Disposition Patient Disposition: Home Condition: Good Discharge Details Clinical Impression: Diverticulitis Primary Care Provider: Angelica Hoyos ED Provider: Denys López Home Meds and New Rx's Prescriptions: New ciprofloxacin HCl 500 mg tablet 500 mg PO BID 7 Days Qty: 14 0RF metronidazole 500 mg tablet 500 mg PO Q8H 7 Days Qty: 21 0RF No Action lisinopril 5 mg tablet 5 mg PO DAILY Discharge Instructions Instructions: Diverticulitis (DC) Additional Instructions: At this time you have evidence of diverticulitis. Please take the antibiotics as prescribed. Please be cautious, Cipro can cause irritation to your tendons. Please avoid any fast or sudden movements, as this can cause significant tendon irritation. Please avoid any alcohol while on the medication. If you notice any worsening of your symptoms, or any new symptoms such as vomiting, diarrhea, fever, chills, shortness of breath, chest pain, numbness, weakness, or fainting , please return immediately to the emergency department for reevaluation. Please follow up with your primary care provider as soon as possible for reassessment and reevaluation. As always, it was a pleasure participating in your medical care today. Referrals: Mohamud Anderson MD [ [facility] STAFF PHYSICIAN, Surgery] Angelica Hoyos [Primary Care Provider, Medicine] HPI General Date/Time Provider Initiated Documentation: 06/16/25 13:52. 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 [facility], but does have permission to be seen and managed at outside facilities. He presents today for return of left lower quadrant abdominal pain for the last day and a half. Pain is mild and achy in nature. He denies any vomiting or diarrhea. No blood in his stool. No bloody vomit. He denies fever or chills. No other complaints at this time. No other modifying factors. He is scheduled for outpatient nonemergent colonoscopy with Dr. Anderson. Related Data Home Medications ?Medication ?Instructions ?Recorded ?Confirmed lisinopril 5 mg tablet 5 mg PO DAILY 04/21/25 06/16/25 ciprofloxacin HCl 500 mg tablet 500 mg PO BID 7 days #14 tabs 06/16/25 metronidazole 500 mg tablet 500 mg PO Q8H 7 days #21 tabs 06/16/25 Previous Rx's ?Medication ?Instructions ?Recorded ciprofloxacin HCl 500 mg tablet 500 mg PO BID 7 days #14 tabs 06/16/25 metronidazole 500 mg tablet 500 mg PO Q8H 7 days #21 tabs 06/16/25 Allergies Allergy/AdvReac Type Severity Reaction Status Date / Time bee venom protein (honey bee) Allergy Intermediate localized Verified 06/16/25 13:55 swelling General Stated Complaint: Abd Prob JACKIE: 3 Exam Narrative Exam Narrative: 1.Const: Well-nourished, Well-developed, appearing stated age 2.Eyes: PERRL, no conjunctival injection, and symmetrical lids. 3.ENT: Atraumatic external nose and ears. Moist MM. Neck: Symmetric, trachea midline, No thyromegaly. 4.CVS: +S1/S2, Peripheral pulses 2+ and equal in all extremities. Brisk capillary refill in all extremities. 5.RESP: Unlabored respiratory effort. Clear to auscultation bilaterally. No wheezes rales or rhonchi 6.GI: Soft, nondistended, no guarding or rebound. Mild left lower quadrant tenderness on deep palpation. 7.MSK: Normocephalic/Atraumatic, Extremities w/o deformity or ttp No cyanosis or clubbing, Normal movement of all extremities 8.Skin: Warm, Dry. No rashes or lesions. 9.Neuro: nutrition assistant II-XII grossly intact. Sensation grossly intact, no focal neurologic deficits. 10.Psych: (AAO) x3. Appropriate mood and affect Course Vital Signs Vital signs: Vital Signs Temperature 36.4 C 06/16/25 13:53 Pulse 74 06/16/25 13:53 Respiratory Rate 16 06/16/25 13:53 Blood Pressure 161/109 H 06/16/25 13:53 Pulse Oximetry 97 06/16/25 13:53 Temperature 36.4 C 06/16/25 14:26 Pulse 74 06/16/25 14:26 Respiratory Rate 16 06/16/25 14:26 Blood Pressure 161/109 H 06/16/25 14:26 Pulse Oximetry 97 06/16/25 14:26 Oxygen Delivery Method Room Air 06/16/25 14:26 Oxygen Flow Rate 0 06/16/25 14:26 Pain Level 5 06/16/25 14:26 Lab/Test Results Lab/Test Results: Laboratory Tests Range/Units 06/16/25 14:30 WBC (4.4-10.8) 10^3/uL 7.36 RBC (4.36-5.78) 10^6/uL 4.86 Hgb (13.5-17.5) g/dL 15.2 Hct (40.0-50.0) % 43.6 MCV (80-95) fL 90 MCH (27.0-33.0) pg 31.3 MCHC (32.0-36.0) % 34.9 RDW (11.8-14.1) % 12.7 Plt Count (130-400) 10^3/uL 312 MPV (8.0-11.0) fL 8.8 Immature Gran % % 0.4 Neutrophils % % 77.0 Lymphocytes % % 12.5 Monocytes % % 8.3 Eosinophils % % 0.8 Basophils % % 1.0 Nucleated RBC % (0.0-0.3) % 0.0 Absolute Neutrophils (1.2-6.7) 10^3/uL 5.67 Absolute Lymphocytes (1.2-3.4) 10^3/uL 0.92 L Absolute Monocytes (0.1-0.8) 10^3/uL 0.61 Absolute Eosinophils (0.0-0.7) 10^3/uL 0.06 Absolute Basophils (0.0-0.2) 10^3/uL 0.07 VBG Lactate (<or=2.0) mmol/L 0.7 Medical Decision Making 54-year-old male with a past medical history of diverticulitis, with past medical history of mild to moderate 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 He is [facility] patient, but does have permission to be seen and managed at outside facilities. He presents today for return of left lower quadrant abdominal pain for the last day and a half. Pain is mild and achy in nature. He denies any vomiting or diarrhea. No blood in his stool. No bloody vomit. He denies fever or chills. No other complaints at this time. No other modifying factors. He is scheduled for outpatient nonemergent colonoscopy with Dr. Anderson. Exam demonstrates mild left lower quadrant tenderness on deep palpation, no guarding or rebound, no evidence to suggest an acute surgical abdomen. Will get CT imaging to rule out prior for abscess, we will gently rehydrate give NSAID therapy, monitor closely and reassess. 3:50 PM Laboratory workup has returned, no white count or bandemia. Electrolytes normal lactate normal, urinalysis negative except for minimal amount of blood. Creatinine slightly increased to 1.4, we will rehydrate. CT scan shows evidence of diverticulitis without perforation, abscess, or free air. Patient's pain is resolved with NSAID therapy. Patient feels well and feels comfortable going home. Patient will be discharged. Discussed red flags for which to return. We will give the patient Cipro and Flagyl here IV, and then continue prescription for home use as wel. I do feel that this level of antibiotic therapy is indicated over just simply Augmentin secondary to his recent abscess. I have extensively reviewed the treatment plan and discharge instructions with the patient. I have addressed all patient concerns at this time. The patient was made aware of what symptoms to monitor for that would warrant a return to the emergency department. Discussed the plan with the patient, they demonstrate verbal understanding and agreement with our assessment and plan at this time. The documentation in this chart was dictated using [employer] dictation software. Please excuse any dictation errors. FINDINGS: ABDOMEN and PELVIS: Lung Bases: No acute findings. Liver: Normal density. No suspicious mass. Gallbladder and biliary tract: No radiodense calculus. No wall thickening or pericholecystic fluid. No biliary dilation. Pancreas: Normal density. No abnormal calcifications or inflammatory process. No evidence of mass. Spleen: Normal. Kidneys: Normal size, contour and axis. No radiodense stones. No obstructive uropathy. No suspicious masses seen. Adrenal glands: No masses seen. Vasculature: Abdominal aorta non-dilated. Soft tissues: Unremarkable. Bladder: No gross wall thickening. No calculi.No focal mass. Bowel: There is diverticulosis noted of the lower descending and sigmoid colon. There is a focal area of inflammation at the mid sigmoid, consistent with diverticulitis. There is some stranding in the surrounding fat but no evidence of abscess or perforation. No obstruction. Appendix normal. Peritoneal cavity: No ascites. No focal collection. No free air. Bones: Unremarkable for age. Reproductive organs: Unremarkable. Lymph nodes: No pathologically enlarged lymph nodes. IMPRESSION:: Small focal area sigmoid diverticulitis without evidence of perforation or abscess. PFSH All Active Problems (Updated 06/16/25 @ 15:54 by Denys López DO) Diverticulitis (Chronic) Social History Smoking/Tobacco Use Status: Never Smoking risk assessment performed?: Yes Alcohol Intake: never Drug use: Never Substance use type: does not use Housing: house Do you feel safe at home: Yes Do you feel safe in your relationship?: Yes
[2025-06-16 14:56] LABS: Glucose Negative (Negative)
[2025-06-16 14:58] LABS: ALT 30 U/L (16-63); AST 18 U/L (15-37); Albumin 4.1 g/dL (3.4-5.0); Alkaline Phosphatase 74 U/L (46-116); Anion Gap 7.0 mmol/L (3-11); BUN 13 mg/dL (7-18); Bilirubin, Total 0.5 mg/dL (0.2-1.0); CO2 29.0 mmol/L (21.0-32.0); Calcium 9.1 mg/dL (8.5-10.1); Chloride 101 mmol/L (98-107); Estimated GFR 59.36 (mL/min/1.73m2); Glucose 91 mg/dL (74-106); Potassium 4.0 mmol/L (3.5-5.1); Sodium 137 mmol/L (136-145); Total Protein 7.9 g/dL (6.4-8.2)
[2025-06-16 15:10] LABS: C & S Indicated? No; RBC 0-2 HPF (0-2); WBC Negative HPF (0-5)
[2025-06-16] MEDS: CIPROFLOXACIN 400 MG/200 ML BAG 200 MG IVPB (15:58)
[2025-06-16] MEDS: metroNIDAZOLE 500 MG/100 ML BAG 100 MG IVPB (15:59)
[2025-06-16 16:32] VITALS: BP 161/109; PULSE 74; RESP 16; TEMP 36.4; O2SAT 97
== END 2025-06-16 16:33 | disposition home or self-care (01) ==
PROVIDERS: Emergency Provider Student in an Organized Health Care Education/Training Program; PCP Nurse Practitioner Family
DX: K57.92 Diverticulitis of intestine, part unspecified, without perforation or abscess without bleeding (principal); R10.32 Left lower quadrant pain
CPT/HCPCS: 80053; 96361; 96365; 96375; 99285; 74177; 81003; 81015; 83605; 85025; 99284; J0131; J0744; J1836; J1885; J3490

== ENCOUNTER 2025-07-21 11:49 | Day surgery (SDC) | payer OTHER, SELFPAY ==
--- NOTE | 2025-07-20 17:17 | W.PM.DSUDISC ---
Date of service: 07/21/25 Discharge Plan Disposition Patient Disposition: Home Condition: Good Discharge Details Reason For Visit: screening colonoscopy Attending Provider: Mohamud Anderson Primary Care Provider: Angelica Hoyos Home Meds and New Rx's Prescriptions: Continued lisinopril 5 mg tablet 5 mg PO DAILY Discharge Instructions Instructions: Diverticulosis, High-fiber diet Additional Instructions: Michael, was good seeing you today, feel well after the procedure. Things went very smoothly. As we suspected beforehand, you certainly have diverticulosis, and there is no evidence of inflammation associated with this. I suspect this is the main source of the issues that you are having. I did find, as well as 3 polyps in addition to the diverticulosis. I removed these polyps today, and I will send them off to the pathologist for the review. Asked differently at this point. The pathology result can take a week or 2 to get back, but as soon as I have that information, I will be in touch, talk about how you are feeling with different treatment strategies. If you need anything or have any questions in the meantime, please do not hesitate to ask. 1. If tolerated, consume a soft, low fiber diet for 1-2 days. [address] not drive, drink alcohol, operate machinery, make critical decisions, or do activities that require coordination or balance for 24 hours. 3. Because air was put into your colon during the procedure, expelling air from your rectum (passing gas or farting) is normal. 4. You may not have a bowel movement for 1-3 days because of the colonoscopy prep. This is normal. 5. Go directly to the emergency room if you notice any of the following: Develop chills (warm to touch), or if you have a thermometer and your temperature is above 101 Difficulty breathing or difficultly swallowing Persistent vomiting Severe abdominal pain, other than gas cramps Severe chest pain Black, tarry stools Any bleeding ? exceeding one tablespoon 6. Call your physician if the site where your intravenous was started becomes red, swollen, painful, and warm to touch. 7. Your physician has reviewed your pre-procedure medications. Please continue to take those medications as previously ordered. You will be given specific information/education regarding any changes to your medications before leaving. Stand Alone Forms: Anesthesia Discharge Inst., Colonoscopy Post Instructions, Donn Ascencio (DSU) Activity:: Activity as Tolerated Diet:: As Tolerated Discharge Orders Discharge Orders: Discharge Order (Routine); Ordered 07/20/25 Ordered By: Mohamud Anderson DS: Diagnosis Discharge Diagnosis (1) Encounter for screening colonoscopy: Status: Deleted Asessment and Plan: Follow-up on the results
--- NOTE | 2025-07-20 17:19 | COLE_ITS ---
Date of service: 07/21/25 Time of Service: 14:08 Colonoscopy Report Date of procedure: 07/21/25 Pre-op diagnosis general: screening colonoscopy Post-op diagnosis procedure note: other (Colon polyps, segmental colitis associated with diverticulosis) Procedure: colonoscopy with polypectomy Surgeon: Mohamud Anderson Anesthesia Type: General:No Airway Estimated blood loss (mL): 5 Pathology: other (0.05 cm pedunculated polyp at 35 cm, 1 cm pedunculated polyp at 45 cm, 0.25 cm flat polyp at 60 cm) Complications: None Disposition: same day Indications: Michael is a 54 year old man with diverticulosis. He needs his next screening colonoscopy Prep: Miralax/Dulcolax Procedure Start Time: 13:28 Procedure End Time: 13:49 Retraction Time: 11 Findings: 0.05 cm pedunculated polyp at 35 cm, 1 cm pedunculated polyp at 45 cm, 0.25 cm flat polyp at 60 cm; sigmoid colitis associated with diverticulosis Procedure Description: After the induction of anesthesia, and with primary in left lateral decubitus position, I began by performing an external anorectal exam.? Perineum and skin were normal, as was the anal verge.? There was no evidence of external hemorrhoids.? Next, I performed a digital rectal exam.? I did note appreciate any abnormal findings.? Next, I advanced a colonoscope into the rectal vault.? I performed retroflexion.? This appeared normal. using irrigation, I then advanced the colonoscope beyond the rectal folds and into the sigmoid colon. Around 35 cm past the anal verge was a 0.75 cm pedunculated polyp. This was removed with snare polypectomy. There was minimal bleeding from the polypectomy site. Another 1 cm polyp was found around 45 cm past the anal verge. This was also removed with a energize snare. There was no bleeding from this site. There is diverticulosis that extends from about 20 cm past the anal verge to about 50 cm. There are a few areas of segmental colitis associated with this. I continued towards the right side.? The quality of the prep was excellent.? The scope was noted to be in the cecum by identification of the ileocecal valve and appendiceal orifice.? I then began withdrawing the colonoscope using repeated irrigation as necessary for full evaluation of the colonic mucosa. ?Around 60 cm from the anal verge was a 0.25 cm flat polyp. This was removed piecemeal with cold snare polypectomy. There was minimal bleeding from the site. Once the scope was withdrawn to the level of the rectum, great care was taken to examine portions of the rectal folds.? Finally, the scope was withdrawn and the patient was brought to the same-day surgery recovery unit as the anesthetic wore off. ?The findings and instructions were shared with the patient prior to discharge. [place] Bowel Prep [place] Bowel Prep Right Colon: 3 Left Colon: 3 Transverse Colon: 3 Total Score: 9
[2025-07-21 12:23] VITALS: BP 149/99; PULSE 66; RESP 16; TEMP 36.7; O2SAT 96
[2025-07-21] MEDS: Lactated Ringers 1,000 ML 80 ML IV (12:44)
--- NOTE | 2025-07-21 13:22 | W.ANESPRE ---
General Info Date of Service Date Performed: 07/21/25 Height: 5 ft 8 in Weight: 88.7 kg Body Mass Index (BMI): 29.7 Surgical Procedure: Operation Date: 07/21/25 13:35 Proposed Procedure Side Surgeon p Colonoscopy Mohamud Anderson MD Meds Allergies and Home Medications Allergies Allergy/AdvReac Type Severity Reaction Status Date / Time bee venom protein (honey bee) Allergy Intermediate localized Verified 07/21/25 12:18 swelling Home Medication ?Medication ?Instructions ?Recorded lisinopril 5 mg tablet 5 mg PO DAILY 04/21/25 Current Visit Medications: Current Medications Generic Name Dose Route Start Last Admin Trade Name Freq PRN Reason Stop Dose Admin Ringer's Solution 1,000 mls @ 80 mls/hr 07/21/25 06:00 07/21/25 12:44 IV 07/21/25 23:59 80 mls/hr INFUSION CRISTA Administration IV Miscellaneous Supplies 1 each 07/21/25 06:00 Iv Access IV 07/21/25 23:59 DIRECTED CRISTA Sodium Chloride 0 ml 07/21/25 06:00 Normal Saline Flush 10 Ml Syr IV 07/21/25 23:59 PRN PRN Sodium Chloride 0 ml 07/21/25 06:00 Normal Saline 10 Ml Vial IJ 07/21/25 23:59 DIRECTED PRN Sterile Water 0 ml 07/21/25 06:00 Water,Injection,Sterile 10 Ml Vial IJ 07/21/25 23:59 DIRECTED PRN PFSH Active Problems Active Problems: Problem Status Onset Code Encounter for screening colonoscopy Acute Z12.11 Diverticulitis Chronic K57.92 Medical History Medical History Hypertension Surgical History Surgical History H/O colonoscopy Tobacco Smoking/Tobacco Use Status: Never Alcohol Alcohol Intake: never Substance Use Substance use: Never Substance use type: does not use Vital Signs and Lab Results Vital Signs Most Recent Vital Signs in EMR: Most Recent Vital Signs Temp Pulse Resp BP Pulse Ox 36.7 C 66 16 149/99 H 96 07/21/25 12:23 07/21/25 12:23 07/21/25 12:23 07/21/25 12:23 07/21/25 12:23 Anesthesia Assessment and Plan Anesthesia History Personal History: No History of Anesthesia Complications Family History: No Family History of Anesthesia Complications Exercise Tolerance Exercise Tolerance: Metabolic Equivalents>4 Pertinent Negatives Pertinent Negatives: No Symptoms of GERD Cardiac & Pulmonary Exam Cardiac Exam: Normal S1/S2 Heart Sounds Pulmonary Exam: Clear Bilateral Breath Sounds Implantable Cardiac Device Does patient have a Pacemaker or an ICD?: No Airway Exam Known Difficult Airway: No Mallampati Class: 2 Mouth Opening: Normal (> 3cm) Thyromental Distance: Greater than 3 cm Neck Range of Motion: Full ROM Neck Circumference: Normal Teeth Condition: Normal Dentition ASA Classification ASA Score: ASA 2 Emergency Case?: No NPO Status NPO Status: NPO Clears >2 hours, Solids >8 hours Anesthesia Plan Resuscitation Status: Full Code Anesthesia Technique: General Anesthesia Airway Planned: Natural Airway Monitors Used: Standard Monitors Preoperative Comments:: , burn pit exposure
[2025-07-21 13:24] VITALS: BMI 29.7
--- NOTE | 2025-07-21 13:31 | BOWEL_PTH ---
PATIENT: Michael Beatty LOC: [facility] U#:[id number] AGE/SX: 54/M ROOM: RE07/21/[address]: Mohamud Anderson MD : 1970 BED: DIS: 07/21/2025 SPEC #: [id number] RECD: 07/21/25 15:37 STATUS: ROMEL RE #: [id number] AIDEE: 07/21/25 13:[address]: Mohamud Anderson DEPT: Surgical Specimen RECD BY: Gay Escamilla ENTERED: 07/21/25 15:38 SP TYPE: Bowel OTHR DR: Angelica Hoyos Tissues: 1 - BIOPSY BOWEL 2 - BIOPSY BOWEL 3 - BIOPSY BOWEL Procedures: GROSS AND MICRO LEVEL 4 Comments: [id number]
[2025-07-21 13:57] VITALS: BP 137/93; PULSE 81; RESP 15; TEMP 36.5; O2SAT 96
--- NOTE | 2025-07-21 14:01 | W.ANESPOSTOP ---
Postoperative Evaluation Date, Time and Location Date Performed: 07/21/25 Time Performed: 14:01 Patient Location: Day Surgery Unit Vital Signs Most Recent Imported Vital Signs: Most Recent Vital Signs Temp Pulse Resp BP Pulse Ox 36.7 C 66 16 149/99 H 96 07/21/25 12:23 07/21/25 12:23 07/21/25 12:23 07/21/25 12:23 07/21/25 12:23 Assessment Mental Status: Awake (Alert & Oriented to Patient Baseline) Airway and Respiratory Function: Patent airway with normal (patient baseline) respiratory exam Cardiovascular Function: Hemodynamically Stable Hydration Status: Adequately Hydrated Nausea & Vomiting: No Nausea or Vomiting Pain: Pt. Denies Any Pain Peripheral Nerve Block: Patient did not receive a nerve block
[2025-07-21 14:27] VITALS: BP 146/94; PULSE 67; RESP 16; TEMP 36.2; O2SAT 99
== END 2025-07-21 14:38 | disposition home or self-care (01) ==
LOC: SUR 11:49
PROVIDERS: PCP Nurse Practitioner Family; Visit Provider Surgery
PROC: 0DJD8ZZ Inspection of Lower Intestinal Tract, Via Natural or Artificial Opening Endoscopic (ICD-10-PCS; CPT 45378; principal; 2025-07-21 13:30)
DX: Z12.11 Encounter for screening for malignant neoplasm of colon (principal); K57.30 Diverticulosis of large intestine without perforation or abscess without bleeding; D12.5 Benign neoplasm of sigmoid colon; D12.4 Benign neoplasm of descending colon; K50.10 Crohn's disease of large intestine without complications
CPT/HCPCS: 45385; 88305; J2704